=== PATIENT | male | born 1990 | race Two or more races ===

== ENCOUNTER 2021-10-24 11:40 | Outpatient (REF) | payer OTHER, SELFPAY ==
--- NOTE | ~2021-10-24 | XR_ITS ---
EXAMINATION: XR WRIST, LEFT CLINICAL INFORMATION: Sprain of the left wrist COMPARISON: None TECHNIQUE: PA, lateral, and oblique views of the left wrist. FINDINGS: There is an oblique transverse fracture of the scaphoid waist with slight apex dorsal angulation at fracture site. There is subtle sclerosis along the fracture margins as seen on the oblique view. The fracture line is widened to 2 mm. There is no sclerosis of the proximal pole fragment. Soft tissues are swollen. XR/XR wrist LT min 3V IMPRESSION: Mildly angulated, age indeterminate scaphoid waist fracture. Soft tissue swelling.
== END 2021-10-24 11:41 | disposition home or self-care (01) ==
LOC: HO.HMGCX 11:40
PROVIDERS: PCP Physician Assistant; Visit Provider Physician Assistant
DX: S63.502A Unspecified sprain of left wrist, initial encounter (principal)
CPT/HCPCS: 73110

== ENCOUNTER 2021-11-09 13:15 | Outpatient (REF) | payer OTHER, SELFPAY ==
--- NOTE | ~2021-11-09 | FL_ITS ---
EXAMINATION: XR INJECTION ARTHROGRAM WRIST, LEFT CLINICAL INFORMATION: TFC complex injury. Wrist pain. COMPARISON: None. TECHNIQUE: Following explaining fluoroscopy-guided left wrist arthrogram procedure for MRI including benefits and risks, a written consent was obtained. Patient was placed prone with left upper extremity outstretched and wrist palmar flexed as much as patient could tolerate. The dorsal aspect of wrist was cleaned and draped in the usual sterile manner. 1% lidocaine was injected at the radioscaphoid joint. A short 25-gauge needle was then inserted from the skin into the radioscaphoid joint and 1 mL of nonionic contrast was injected. A single image was obtained. Subsequently, 2 mL of diluted (0.1 mL of gadolinium in 10 mL of saline and 1% lidocaine) as a combination was injected and needle withdrawn. Complete hemostasis was achieved at puncture site. Simple Band-Aid applied. Patient was sent to MRI for further imaging. FINDINGS: The radioscaphoid and intercarpal joint spaces are maintained normal. There is contrast opacifying the radioscaphoid joint under fluoroscopy. Successful 2 ml of diluted gadolinium was injected under fluoroscopy. FLUOROSCOPY TIME: 0.7 minutes. DOSE AREA PRODUCT: 0.176 uGy-m2 (microgray-meter squared). FL/FL arthrogram wrist LT IMPRESSION: Unremarkable left wrist arthrogram. Patient was sent to MRI for further imaging.
--- NOTE | ~2021-11-09 | MR_ITS ---
EXAMINATION: MR WRIST WITHOUT CONTRAST, LEFT CLINICAL INFORMATION: Left wrist pain and swelling following a fall 1 month ago. COMPARISON: None. TECHNIQUE: Multisequence MR imaging of the left wrist was obtained following the intra-articular injection of contrast on a high-field strength scanner. FINDINGS: TRIANGULAR FIBROCARTILAGE: There is distal surface partial tearing along the posterior aspect of the radial triangular fibrocartilage complex measuring 0.2 cm in ML dimension (coronal image 8/23). No full-thickness tear. INTRINSIC LIGAMENTS: Complete tear of the scapholunate ligament with widening of the articulation measuring up to 0.4 cm in ML dimension. The lunotriquetral ligament is intact. TENDONS/MEDIAN NERVE: Trace fluid within the extensor digitorum tendon sheaths consistent with minimal tenosynovitis. No transverse tendon tear or tendon retraction. ARTICULAR CARTILAGE/BONE: Chronic, nondisplaced transverse fracture through the scaphoid waist with mild diffuse scaphoid marrow edema. No continuity of the marrow cavity to suggest significant osseous bridging across the fracture line. No fragmentation or erosion. Marrow edema focally within the dorsal aspect of the radius which could represent an osseous contusion. No associated fracture line. JOINT FLUID/SOFT TISSUES: [id number] radiocarpal joint effusion. MR/MR wrist LT w con IMPRESSION: 1. Subacute/chronic-appearing nondisplaced transverse fracture through the scaphoid waist with diffuse scaphoid marrow edema. No evidence of osseous bridging. No erosion or fragmentation to suggest advanced avascular necrosis. 2. Focal edema within the dorsal aspect of the distal radius which could represent an osseous contusion. No fracture line. 3. Complete, full-thickness tear of the scapholunate ligament with widening of the articulation measuring 0.4 cm in ML dimension. 4. Distal surface partial tearing involving the dorsal/radial aspect of the triangular fibrocartilage complex measuring 0.2 cm in ML dimension. No full-thickness tear. 5. Minimal extensor digitorum tenosynovitis without a transverse tendon tear or tendon retraction. 6. Mykrv-sd-dtzyrtml radiocarpal joint effusion.
== END 2021-11-09 13:16 | disposition home or self-care (01) ==
LOC: HO.XRAY 13:15
PROVIDERS: Visit Provider Physician Assistant
DX: S69.82XA Other specified injuries of left wrist, hand and finger(s), initial encounter (principal)
CPT/HCPCS: 25246; 73115; 73222; A9585

== ENCOUNTER 2021-11-11 12:40 | Outpatient (REF) | payer OTHER, SELFPAY ==
--- NOTE | ~2021-11-11 | XR_ITS ---
EXAMINATION: XR LEFT WRIST WITH SCAPHOID CLINICAL INFORMATION: Left wrist pain. COMPARISON: 11/09/2021 and 10/24/2021. TECHNIQUE: AP view of the left wrist and AP view of both left and right wrists. FINDINGS: There is a stable minimally displaced fracture through the waist of the left scaphoid. No dislocation on this view is identified. There appears to be some widening of the scaphoid lunate space. XR/XR wrist LT w scaphoid IMPRESSION: No significant change in appearance of left scaphoid waist fracture.
== END 2021-11-11 12:41 | disposition home or self-care (01) ==
LOC: HO.HOSX 12:40
PROVIDERS: Visit Provider Physician Assistant
DX: M25.532 Pain in left wrist (principal)
CPT/HCPCS: 73110

== ENCOUNTER 2021-11-19 09:22 | Outpatient (REF) | payer OTHER, SELFPAY ==
--- NOTE | ~2021-11-19 | CT_ITS ---
EXAMINATION: CT WRIST THE LEFT WITHOUT CONTRAST CLINICAL INFORMATION: Scaphoid bone fracture, follow-up. COMPARISON: Left wrist radiographs dated 11/11/2021 and 10/24/2021 as well as left wrist MRI performed on 11/09/2021. TECHNIQUE: Multiple axial images of the left wrist are obtained without the administration of intravenous contrast. Coronal and sagittal reformatted images were obtained. FINDINGS: Again seen is a mid body transverse comminuted fracture of the scaphoid bone with minimal displacement. A small osseous fragment is seen along the ventral aspect of the fracture. Mild widening of the scapholunate joint space, more pronounced ventrally is noted. The proximal carpal row is normally aligned. The distal radius and ulna are intact. The visualized metacarpals are intact. Mild soft tissue swelling is seen bilaterally. CT/CT wrist LT wo con IMPRESSION: 1. Minimally displaced comminuted mid body scaphoid fracture correlating with previous studies. 2. Mild widening of the scapholunate joint space, more pronounced ventrally correlates with previously described scapholunate ligament tear.
== END 2021-11-19 09:23 | disposition home or self-care (01) ==
LOC: HO.CT 09:22
PROVIDERS: PCP Physician Assistant; Visit Provider Physician Assistant
DX: S62.009A Unspecified fracture of navicular [scaphoid] bone of unspecified wrist, initial encounter for closed fracture (principal); X58.XXXA Exposure to other specified factors, initial encounter; Y93.9 Activity, unspecified; Y92.9 Unspecified place or not applicable; Y99.8 Other external cause status
CPT/HCPCS: 73200

== ENCOUNTER 2021-12-02 08:51 | Outpatient (REF) | payer OTHER, SELFPAY ==
--- NOTE | ~2021-12-02 | XR_ITS ---
EXAMINATIONS: XR wrist LT w scaphoid CLINICAL INFORMATION: Reason for Exam M25.532 - Pain in left wrist COMPARISON: Prior study November 11, 2021, prior CT scan from November 19, 2021. VIEWS: Frontal lateral and oblique scaphoid view left wrist FINDINGS: Redemonstration of mildly displaced fracture of the waist of the left scaphoid, this has not significantly changed from prior study of November 11, 2021. As previously described there is a mild widening of the scapholunate space concerning for possible underlying ligamental injury. No new fracture. XR/XR wrist LT w scaphoid IMPRESSION: There has been no significant change. *Mildly displaced scaphoid waist fracture, given the location of the fracture, scaphoid is at risk for developing AVN. *Mild widening of the scapholunate space concerning for possible underlying ligamental injury.
== END 2021-12-02 08:52 | disposition home or self-care (01) ==
LOC: HO.HOSX 08:51
PROVIDERS: Visit Provider Orthopaedic Surgery
DX: M25.532 Pain in left wrist (principal)
CPT/HCPCS: 73110

== ENCOUNTER 2021-12-07 05:57 | Day surgery (SDC) | payer OTHER, SELFPAY ==
--- NOTE | 2021-12-04 12:19 | P.CONAN_ITS ---
Documented by User: Trish Diamond NP 12/04/21 12:20 HPI - Anesthesia Eval Consult details Narrative: 31yo M for Left Scaphoid ORIF with auto logus bone graft,poss SLIL ligament repair, [facility], [facility] Active Problems Active Problems: All Active Problems (Updated 12/02/21 @ 15:53 by Sherry Mariano MD) Left scapholunate ligament tear (Acute) Delayed union of fracture of scaphoid of left wrist (Acute) TFCC (triangular fibrocartilage complex) injury (Acute) Scaphoid fracture (Acute) Left wrist sprain (Acute) Social History Social History Use of substances other than those prescribed or required for medical reasons: Yes Substance Use Frequency: Daily Are you DNR?: No Advance Directives: No Advance Directives Information Provided: Yes Current occupational status: 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 Allergies Allergy/AdvReac Type Severity Reaction Status Date / Time No Known Allergies Allergy Verified 12/02/21 09:37 Exam Exam Date and Time: December 04, 2021 121 Assessment and Plan Assessment Anesthesia Assessment: Chart Reviewed Documented by User: Atul Murry MD 12/07/21 15:51 [facility], [facility] Family History Family history of problems with anesthesia: No Surgical History History of Problems with Anesthesia: No Social History Social History Use of substances other than those prescribed or required for medical reasons: Yes Substance Use Frequency: Daily Are you DNR?: No Advance Directives: No Advance Directives Information Provided: Yes Current occupational status: 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 Allergies Allergy/AdvReac Type Severity Reaction Status Date / Time No Known Allergies Allergy Verified 12/02/21 09:37 Exam Airway Mallampati Class: III TM Dist: >3cm Neck ROM: Full Loose/Missing/Broken Teeth: Yes (Lower teeth chipped , poor dentition ) Heart: S1,S2 Lungs: b/l breath sounds Assessment and Plan Assessment Anesthesia Assessment: Anesthesia Plan Discussed Final Anesthetic Review Family History of Problems with Anesthesia: No History of Problems with Anesthesia: No NPO: Yes ASA Class: II Final Preanesthetic Review: Meds/Allgs Chart Reviewed, Consent Obtained/Reviewed and Anes Risks/Benef Reviewed Patient Risk: Intermediate Procedure Risk: Intermediate Anesthetic Plan Anesthetic Plan: GA and Regional Block Disposition: Standard PACU
[2021-12-07] VITALS (8 sets, daily range): BP systolic 119–144; BP diastolic 80–97; PULSE 71–94; RESP 14–22; TEMP 36.4–36.7; O2SAT 96–98; BMI 23.7
--- NOTE | ~2021-12-07 | FL_ITS ---
EXAMINATION: XR FLUOROSCOPY WITH IMAGES CLINICAL INFORMATION: Scaphoid fracture COMPARISON: December 02, 2021 TECHNIQUE: Fluoroscopy performed by Dr. Mariano. Fluoroscopy time: 89.90 seconds DAP: 0.1935 Gycm2 Images: 11 FINDINGS: C-arm views show placement of screw within the scaphoid. FL/FL guidance in OR IMPRESSION: C-arm imaging for intraoperative orthopedic procedure.
[2021-12-07] MEDS: Lactated Ringers 1,000 ML 100 ML IVCONT (06:29)
--- NOTE | 2021-12-07 07:43 | MHC.SHP ---
Pre-Procedural Eval Section A Date of Service: 12/07/21 The patient is an INPATIENT: No Changes since office visit: No Cold of Flu in the past 2 weeks, No New Medical Problems, No Changes in Medication and No Patient answered all questions The History & Physical has been completed within 30 days and I have reviewed it.: Yes Section B Chief Complaint: Sprain of other part of left wrist and hand,fx Allergies: Allergies Allergy/AdvReac Type Severity Reaction Status Date / Time No Known Allergies Allergy Verified 12/02/21 09:37 Plan I have reviewed the history and physical and performed a pertinent physical examination on my patient. No changes have occurred unless specified.
--- NOTE | 2021-12-07 07:44 | P.OP_ITS ---
Operative Note Operative Note Date of Service: 12/07/21 Narrative: Operative Note Narrative: Preop diagnosis: 1. Left scaphoid fracture delayed union, proximal 1/3 2. Possible left scapholunate intercarpal ligament injury Postop diagnosis: 1. Left scaphoid fracture delayed union, proximal 1/3 2. Partial left scapholunate intercarpal ligament injury with the dorsal structural aspect of the ligament being intact. Procedure: 1. Left scaphoid fracture open reduction internal fixation Surgeon: Sherry Mariano MD Anesthesia: General Anesthesia plus regional block Findings: Proximal 1/3 scaphoid fracture. The dorsal fibers of the scapholunate intercarpal ligament were intact and functional. No SLIL proximal or volar fibers were visualized. Implants: 22 mm AcuTrak 2 mini headless compression screw Tourniquet time: 65 minutes EBL: 5.0 ml Specimen: None Drains: None Complications: None Disposition: Brought to the recovery room in stable condition Plan: Follow-up in 10-14 days for wound check, suture removal and placement in a short-arm thumb spica cast Anticipate casting for 10-12 weeks or more or until there was good evidence of interval bony healing. Follow-up radiographs and cast changes should occur at roughly 4 week intervals. 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 Indications: The patient is a 31 year old man with with a complex left wrist injury including delayed union of a left proximal 1/3 scaphoid fracture, and concern for a possible scapholunate intercarpal ligament injury. . The risks and benefits of operative treatment, including but not limited to risk of damage to blood vessels, nerves, tendons, infection, recurrence, persistent pain or numbness, incomplete resolution of preoperative symptoms, or need for further surgery were discussed with the patient and they wished to proceed with surgery. Procedure: Once consent was obtained patient was brought back to the operating suite and placed in the operating table in a supine position. A regional block was performed by the anesthesia team. Perioperative antibiotics and anesthesia was administered by the anesthesia team. A tourniquet was applied to the proximal aspect of the left upper extremity and the limb was prepped and draped in a standard surgical fashion. The limb was elevated exsanguinated with Esmarch bandage and the tourniquet inflated to 250 mm of mercury for a total tourniquet time of 65 minutes. A 6 cm dorsal longitudinal incision was made centered over the dorsal aspect of the patient's left wrist. Incision was in line with the 3rd metacarpal and passed just ulnar to Julio's tubercle, and was made through the skin the subcutaneous tissues using a 15. Blade. Careful dissection was made down to the level of the extensor retinaculum and the dorsal wrist capsule. The distal aspect of the extensor retinaculum was released longitudinally using a 15. Blade. We then passed through the interval between the 3rd and 4th dorsal compartments to the dorsal wrist capsule. A longitudinal incision was then carefully made through the dorsal aspect of the wrist capsuloligamentous layer, revealing to us the wrist joint. The scapholunate joint was evaluated. Of interest, the dorsal fibers of the scapholunate intercarpal ligament were intact and functional. However, the proximal and volar fibers were missing. The interval dorsally appeared to measure only about 2-3 mm. This did appear to increase to perhaps 4 or more mm in the volar aspect of the interval seen with the wrist in flexion. Our attention was turned to the scaphoid fracture. The FluoroScan was used throughout the case to assess our reduction and placement of all implants. The K-wire for the AcuTrak 2 mini headless compression screw was passed through the proximal pole of the scaphoid distally across the fracture site to the distal pole of the scaphoid. We were able to position this K-wire very close to center center an both PA and lateral views. Once satisfied with this the length was measured to 27 mm from which I took off 2 mm for both the near cortex and then 2 mm for the far cortex and we selected a 22 mm AcuTrak 2 mini headless compression screw. The long slender cannulated Reamer was then used to ream across our scaphoid fracture. The short fat Reamer was then used to open up the near cortex. I then placed the 22 mm AcuTrak 2 mini headless compression screw and advanced it from proximal to distal across our fracture site. We appear to obtain good compression at our fracture site, were very satisfied with the position of our screw, and were assured both visually and radiographically that the head of the screw was deep to both the cartilage and the subchondral bone. The guidewire was then removed and final radiographs were obtained. I again evaluated the scapholunate interval. The dorsal fibers of the SLIL were indeed intact. The dorsal interval only measured about 2-3 mm in width even with axial loading, though we did see that the gap volarly was slightly more at 4-5 mm. Of note, preoperatively I had measured the scapholunate interval of the uninjured right wrist on pencil novelty twister operator view and found it to be 4 mm. As the dorsal fibers of the scapholunate intercarpal ligament were intact, they were not in need of repair. At this point the tourniquet was deflated and hemostasis obtained with a brief period of local pressure and bipolar electrocautery. The wound was copiously irrigated with normal saline. The capsuloligamentous layer was reapproximated with some 4-0 FiberWire suture. The distal aspect of the extensor retinaculum was also closed with some 4-0 FiberWire and 4-0 Vicryl suture. The EPL tendon was noted to be intact and gliding well. The subcutaneous layer was closed with 4-0 Vicryl suture, and the skin edges were reapproximated with 5-0 nylon suture. The wound was infiltrated with some ropivacaine for postop pain control and a sterile dressing and short-arm thumb spica splint was applied. The patient appears to have tolerated the procedure well and with no complications. All digits were well vascularized conclusion of the case.
[2021-12-07] MEDS: Acetaminophen 325 MG TABLET 650 MG PO (11:15)
== END 2021-12-07 12:27 | disposition home or self-care (01) ==
PROVIDERS: Visit Provider Orthopaedic Surgery
PROC: (CPT 25628; principal; 2021-12-07 07:30)
DX: S62.032K Displaced fracture of proximal third of navicular [scaphoid] bone of left wrist, subsequent encounter for fracture with nonunion (principal); S63.512A Sprain of carpal joint of left wrist, initial encounter; V18.4XXD Pedal cycle driver injured in noncollision transport accident in traffic accident, subsequent encounter; Y93.67 Activity, basketball; Y92.9 Unspecified place or not applicable; Y99.8 Other external cause status
CPT/HCPCS: 25628; C1713; J0690; J1100; J2250; J2405; J2795; J3010

== ENCOUNTER 2021-12-22 10:08 | Outpatient (REF) | payer OTHER, SELFPAY ==
--- NOTE | ~2021-12-22 | XR_ITS ---
EXAMINATION: XR WRIST, LEFT CLINICAL INFORMATION: Pain. COMPARISON: Radiographs dated 12/03/2021. TECHNIQUE: PA, lateral, and oblique views of the left wrist, together with a dedicated navicular view. FINDINGS: Bony alignment and mineralization are normal. There is a healed scaphoid fracture, with intact orthopedic screw. No hardware failure or loosening is seen. No acute fracture or dislocation is seen. There is no unusual degenerative change. The soft tissue planes are unremarkable. XR/XR wrist LT w scaphoid IMPRESSION: A healed scaphoid fracture is seen, in good alignment.
== END 2021-12-22 10:09 | disposition home or self-care (01) ==
LOC: HO.HOSX 10:08
PROVIDERS: Visit Provider Orthopaedic Surgery
DX: M25.532 Pain in left wrist (principal)
CPT/HCPCS: 73110

== ENCOUNTER 2022-01-26 09:07 | Outpatient (REF) | payer OTHER, SELFPAY ==
--- NOTE | ~2022-01-26 | XR_ITS ---
EXAMINATION: LEFT WRIST X-RAY CLINICAL INFORMATION: Fracture COMPARISON: Previous x-ray most recent 12/22/2021 TECHNIQUE: 4 views of the left wrist FINDINGS: There is a orthopedic screw seen in the scaphoid bone. Scaphoid fracture appears unchanged. There is osteopenia. There is slight widening of the left scapholunate distance that appears stable. Carpal bones are otherwise normal. Soft tissues are normal. XR/XR wrist LT w scaphoid IMPRESSION: No change in scaphoid fracture.
== END 2022-01-26 09:08 | disposition home or self-care (01) ==
LOC: HO.HOSX 09:07
PROVIDERS: Visit Provider Orthopaedic Surgery
DX: M25.532 Pain in left wrist (principal)
CPT/HCPCS: 73110

== ENCOUNTER 2022-02-03 08:28 | Outpatient (REF) | payer OTHER, SELFPAY | END 2022-02-03 08:29 | disposition home or self-care (01) | LOC: HO.HOSX 08:28 | PROVIDERS: Visit Provider Orthopaedic Surgery | DX: Z13.89 Encounter for screening for other disorder (principal) ==

== ENCOUNTER 2022-02-10 | Outpatient (REF) | payer OTHER, SELFPAY ==
--- NOTE | ~2022-02-10 | XR_ITS ---
EXAMINATION: LEFT WRIST X-RAY CLINICAL INFORMATION: Fracture COMPARISON: Previous x-ray most recent 01/26/2022 TECHNIQUE: 4 views of the left wrist FINDINGS: There is an orthopedic screw seen in the scaphoid bone. This appears unchanged. Scaphoid fracture appears unchanged. There is osteopenia. There is widening of the scapholunate distance. Soft tissues are unremarkable. XR/XR wrist LT w scaphoid IMPRESSION: No change in scaphoid fracture.
== END 2022-02-10 00:01 | disposition home or self-care (01) ==
LOC: HO.HOSX
PROVIDERS: Visit Provider Orthopaedic Surgery
DX: M25.532 Pain in left wrist (principal)
CPT/HCPCS: 73110

== ENCOUNTER 2022-03-09 17:01 | Outpatient (REF) | payer OTHER, SELFPAY ==
--- NOTE | ~2022-03-09 | XR_ITS ---
EXAMINATION: XR wrist LT w scaphoid CLINICAL INFORMATION: Pain in left wrist COMPARISON: 02/10/2022 TECHNIQUE: PA, lateral, oblique, and scaphoid views of the left wrist. FINDINGS: A compression screw is seen in the scaphoid. The scaphoid fracture is visible but less conspicuous. No fracture seen elsewhere. XR/XR wrist LT w scaphoid IMPRESSION: Compression screw against banding fracture of the proximal scaphoid waist. The fracture remains visible but is less conspicuous.
== END 2022-03-09 17:02 | disposition home or self-care (01) ==
LOC: HO.HOSX 17:01
PROVIDERS: Visit Provider Orthopaedic Surgery
DX: M25.532 Pain in left wrist (principal)
CPT/HCPCS: 73110

== ENCOUNTER 2022-04-07 | Outpatient (REF) | payer OTHER, SELFPAY ==
--- NOTE | ~2022-04-07 | XR_ITS ---
EXAMINATION: LEFT WRIST X-RAY CLINICAL INFORMATION: Pain COMPARISON: Previous x-rays most recent February 2019 TECHNIQUE: 4 views of the left wrist FINDINGS: There is a screw transfixing the scaphoid fracture. Orthopedic hardware appears unchanged. Alignment is unchanged. Fracture line is still seen. Carpal bones are otherwise normal. Soft tissues are normal. XR/XR wrist LT w scaphoid IMPRESSION: ORIF of scaphoid fracture similar to previous exam.
== END 2022-04-07 00:01 | disposition home or self-care (01) ==
LOC: HO.HOSX
PROVIDERS: Visit Provider Orthopaedic Surgery
DX: M25.532 Pain in left wrist (principal)
CPT/HCPCS: 73110

== ENCOUNTER 2022-05-06 14:59 | Outpatient (REF) | payer OTHER, SELFPAY | END 2022-05-06 15:00 | disposition home or self-care (01) | LOC: HO.HOSX 14:59 | PROVIDERS: Visit Provider Orthopaedic Surgery | DX: Z13.89 Encounter for screening for other disorder (principal) ==

== ENCOUNTER 2022-06-02 14:59 | Outpatient (REF) | payer OTHER, SELFPAY ==
--- NOTE | ~2022-06-02 | XR_ITS ---
EXAMINATION: LEFT WRIST AND SCAPHOID CLINICAL INFORMATION: Pain left wrist COMPARISON: None TECHNIQUE: 4 views. FINDINGS: 4 views left wrist reveal no visible rib fracture or bony abnormality. There is a solitary screw through the scaphoid bone for old healed fracture XR/XR wrist LT w scaphoid IMPRESSION: No acute fracture or dislocation left wrist. There is a solitary screw through the scaphoid bone for old healed fracture. .
== END 2022-06-02 15:00 | disposition home or self-care (01) ==
LOC: HO.HOSX 14:59
PROVIDERS: Visit Provider Orthopaedic Surgery
DX: S62.002G Unspecified fracture of navicular [scaphoid] bone of left wrist, subsequent encounter for fracture with delayed healing (principal); S63.8X2D Sprain of other part of left wrist and hand, subsequent encounter
CPT/HCPCS: 73110

== ENCOUNTER 2022-06-09 14:10 | Outpatient (REF) | payer OTHER, SELFPAY ==
--- NOTE | ~2022-06-09 | CT_ITS ---
EXAMINATION: CT WRIST WITHOUT CONTRAST, LEFT CLINICAL INFORMATION: Scaphoid fracture. COMPARISON: Multiple priors, most recent left wrist CT dated 11/19/2021 and radiographs dated 06/02/2022. TECHNIQUE: Contiguous axial CT images of the left wrist were obtained without contrast. Multiplanar reformats were provided and reviewed. This CT examination was performed using dose optimization techniques as appropriate, variously including the following: *Automated exposure control *Adjustment of mA and/or kV according to patient size (this includes techniques or standardized protocols for targeted exams where dose is matched to indication/reason for exam; i.e. extremities or head) *Use of iterative reconstruction technique. DOSE: 121 mGy-cm FINDINGS: Redemonstration of a chronic scaphoid waist fracture in anatomic alignment. There is a cannulated orthopedic screw across the fracture without evidence of hardware complication. No hardware fracture or perihardware lucency to suggest loosening or infection. There is prominent osseous bridging across the fracture line with minimal persistence along the ulnar aspect. Osseous bridging involves greater than 90% of the fracture surface. No scaphoid sclerosis, cystic change, or cortical collapse to suggest avascular necrosis. Widening of the scapholunate interval which is unchanged when compared to the prior examination and consistent with a scapholunate ligament injury. No joint space narrowing or marginal osteophytes. No concerning lytic or blastic osseous lesion. No acute fracture. No abnormal soft tissue mass or fluid collection. No significant joint effusion. The visualized flexor and extensor tendons are grossly intact, however, evaluation is limited on CT examination. CT/CT wrist LT wo IV con IMPRESSION: 1. Chronic scaphoid waist fracture in anatomic alignment with an orthopedic screw in place. No evidence of hardware complication. Prominent osseous bridging across the fracture line involving greater than 90% of the fracture surface. No evidence of avascular necrosis. 2. Widening of the scapholunate interval, unchanged when compared to the prior examination and consistent with a scapholunate ligament injury.
== END 2022-06-09 14:11 | disposition home or self-care (01) ==
LOC: HO.CT 14:10
PROVIDERS: PCP Physician Assistant; Visit Provider Orthopaedic Surgery
DX: S62.002G Unspecified fracture of navicular [scaphoid] bone of left wrist, subsequent encounter for fracture with delayed healing (principal)
CPT/HCPCS: 73200

== ENCOUNTER → 2022-06-29 11:50 | Outpatient (BNVA) | payer OTHER, SELFPAY | PROVIDERS: PCP Physician Assistant; Visit Provider Orthopaedic Surgery | DX: Z13.89 Encounter for screening for other disorder (principal) ==

== ENCOUNTER 2022-07-30 11:55 | Outpatient (RCR) | payer SELFPAY ==
--- NOTE | 2022-07-30 13:38 | MHC.OT.EP ---
[address] [phone] Occupational Therapy Plan of Care Patient Name: Ambrosio Yang Date of Evaluation: 07/30/22 Diagnosis: Left Scaphoid fx s/p ORIF Pain Location: Pain free at rest Increases w/ movements Pain Score: 0-5 Pain Scale Used: Numeric (0 - 10) Aggravating Factors: Movements, reaching back (scratching back) Alleviating Factors: None needed, has ice pack Assessment: 31 yo male fell while playing basketball, landed on his outstretched left hand and went to urgent care about one month later due to persistent pain. Original x-ray showed left scaphoid fx and follow up CT again shows scaphoid fx, but also potential SL tear, TFCC partial tear and EDC tenosynovitis. He is now post-op repair 12/07 w/ Dr Mariano, ORIF to scaphoid but no other repair needed as SLIL was found intact. He has had several follow up ortho visits and last visit 06/29/22 CT shows 90% healing and OT ordered to progress range, strength and functional use. On assessment, he seems to be doing fairly well. Wrist extension and flexion limited by about 20 degrees each direction, and strength tested w/ submaximal effort, but already with functional grasp. He is pain free at rest and has moderate pain only w/ certain movements of the wrist. He continues to work light duty w/ 5lb weight restriction and is avoiding heavy lifting and recreational sports. I anticipate he will do well w/ course of therapy and home exercises. Frequency and Duration: The patient will be seen 1-2 x/wk for 4-6 weeks Short Term Goals: Ind w/ HEP Pt to report ease w/ sleeping through the night Ind w/ use of heat and cold appropriately as needed Wrist flex 50 degrees Wrist ext 55 degrees Mcc Goals: Gross grasp >50lb Pt to report ease w/ moderate home care tasks (bimanual laundry basket lift, cooking, etc) Pain free w/ most daily activities Wrist flex 60 degrees Wrist ext 60 degrees QuickDASH score <25 pts Treatment Plan: Therapeutic Exercise Therapeutic Activity Home Exercise Program Patient Education Edema Control ADL Training Fluidotherapy MHP Cold Packs Soft Tissue Mobilization Kinesiotaping Electronically Signed By: Merry Claire OTR/L CHT Please Sign and return to therapist. Thank you once again for your referral.
--- NOTE | 2022-08-18 13:59 | MHC.OT.DC ---
[address] [phone] F: [phone] Occupational Therapy Discharge Note Patient Name: Ambrosio Yang Provider: Sherry Mariano Diagnosis: Left Scaphoid fx s/p ORIF Date of Surgery: 12/07/21 Date of Evaluation: 07/30/22 Date of Discharge: 08/18/22 Treatments to Date: 1 Cancellations to Date: No Shows to Date: 3 Discharge Status: Visit Non-compliance Discharge Summary: Ambrosio was seen for initial OT assessment and therapy was recommended for 2x/wk, however he has no showed the past three visits and phone call with message left for appointment reminders. We will discharge from therapy services at this time. From initial OT eval 07/30/22: 31 yo male fell while playing basketball, landed on his outstretched left hand and went to urgent care about one month later due to persistent pain. Original x-ray showed left scaphoid fx and follow up CT again shows scaphoid fx, but also potential SL tear, TFCC partial tear and EDC tenosynovitis. He is now post-op repiar 12/07 w/ Dr Mariano, ORIF to scaphoid but no other repair needed as SLIL was found intact. He has had several follow up ortho visits and last visit 06/29/22 CT shows 90% healing and OT ordered to progress range, strength and functional use. On assessment, he seems to be doing fairly well. Wrist extension and flexion limited by about 20 degrees each direction, and strength tested w/ submaximal effort, but already with functional grasp. He is pain free at rest and has moderate pain only w/ certain movements of the wrist. He continues to work light duty w/ 5lb weight restriction and is avoiding heavy lifting and recreational sports. I anticipate he will do well w/ course of therapy and home exercises. Electronically Signed By: Merry Claire, OTR/L CHT Please Sign and return to therapist, thank you for your referral.
== END 2022-08-18 14:06 | disposition home or self-care (01) ==
LOC: HO.OT 11:55
PROVIDERS: PCP Physician Assistant; Visit Provider Orthopaedic Surgery
DX: S62.002G Unspecified fracture of navicular [scaphoid] bone of left wrist, subsequent encounter for fracture with delayed healing (principal)
CPT/HCPCS: 97110; 97165

== ENCOUNTER 2024-08-22 10:30 | Outpatient (AMB) | payer OTHER, SELFPAY ==
[2024-08-22 10:38] VITALS: BP 124/86; PULSE 67; TEMP 36.5; O2SAT 97; BMI 29.9
--- NOTE | 2024-08-22 10:38 | A.OFFPC_ITS ---
Vital Signs 08/22/24 10:38 Height 6 ft 4 in Weight 246 lb BMI 29.9 BP 124/86 Blood Pressure Location Lt brachial Position Sitting Pulse 67 Pulse Source Pulse Oximeter Temp 97.7 F Temp Source Temporal Artery Scan Pulse Oximetry (%) 97 Oxygen Delivery Method Room Air Intake Visit Reasons: annual exam Seconds Handler Required: No Accompanied by: Self / Same As Patient Allergies No Known Allergies Allergy (Verified 08/22/24 11:13) Medication List - Last Reconciled 08/22/24 by Inder Flores PA-C No Known Home Meds Tobacco use date assessed: 08/22/24 Dental Screening Dental Screen Date: 08/22/24 Did you have a dental visit in the last 12 months?: Yes Did you have a dental problem in the last 6 months where you did not have access to dental care?: No Was dental information given to patient?: Patient has dentist HPI annual exam HPI Details Patient is a 33 year male here today for an annual physical. Patient has no significant past medical history . 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 He was found to elevated serum creatinine at 2.3. He does admit to taking creatinine supplements to help him with muscle mass. He has stopped his creatinine supplement over the last week in his willing to do repeat labs. He also was found to have elevated total cholesterol in his slightly elevated ALT. Vaccines: Needs up-to-date tetanus though declines at this time [facility] Social History (Updated 08/22/24 @ 11:19 by Inder Flores PA-C) Housing: Apartment Alcohol intake: current Alcohol intake frequency: holidays/special occasions only e-Cigarette/Vaping Use: Never Used Substance Use Type: Marijuana service: No Current occupational status: employed Current occupation: [employer] Cognitive needs: No Hearing needs: No Vision needs: No Questionnaire PHQ-9 Over the last 2 weeks, how often have you been bothered by any of the following problems? 1. Little interest or pleasure in doing things: not at all 2. Feeling down, depressed, or hopeless: not at all 3. Trouble falling or staying asleep, or sleeping too much: not at all 4. Feeling tired or having little energy: not at all 5. Poor appetite or overeating: not at all 6. Feeling bad about yourself - or that you are a failure or have let yourself or your family down: not at all 7. Trouble concentrating on things, such as reading the newspaper or watching television: not at all 8. Moving or speaking so slowly that other people could have noticed. Or the opposite - being so fidgety or restless that you have been moving around a lot more than usual: not at all 9. Thoughts that you would be better off or of hurting yourself in some way: not at all Total score: 0 Depression Screening Interpretation: Negative Depression Screening Done: Yes 53467 - PHQ-9 Billing: Yes Source: Developed by Drs. Conrad French, Luciana Thomas, Nato Jacobson and colleagues, with an educational julián from [employer]. Thrive Questionnaire Date Thrive assessed: 08/22/24 I am a: Patient What is your living situation today?: I have a steady place to live Within the past 12 months, did the food you bought not last and you didn't have the money to get more?: Sometimes True Within the past 12 months, did you worry whether your food would run out before you got money to buy more?: Sometimes True Do you have trouble paying for medicines?: No Do you have trouble getting transportation to medical appointments?: No Do you have trouble paying your heating and electricity bill?: No Do you have trouble taking care of your child, family member or friend?: No Do you have trouble with day-to-day activities such as bathing, preparing meals, shopping, managing finances, etc.?: No Are you currently unemployed and looking for a job?: No Are you interested in more education?: I choose not to answer this question Please select the resources that you would like help with: None Currently or been in a relationship where the following occur: I choose not to answer THRIVE Score: 2 AUDIT C Alcohol Use Questionnaire (AUDIT-C) 1. How often do you have a drink containing alcohol?: Never 3. How often do you have six or more drinks on one occasion?: Never Total Score: 0 JAYASHREE-7 AMB Questionnaire AJYASHREE-7 Date JAYASHREE - 7 assessed: 08/22/24 Feeling nervous, anxious, or on edge: 0 = Not at all Not being able to stop or control worryin = Not at all Worrying too much about different things: 0 = Not at all Trouble relaxin = Not at all Being so restless that it is hard to sit still: 0 = Not at all Becoming easily annoyed or irritable: 0 = Not at all Feeling afraid as if something awful might happen: 0 = Not at all Total JAYASHREE-7 score (0-4 normal; 5-9 mild; 10-14 moderate; 15-21 severe): 0 Source: Developed by Drs. Conrad French, Luciana Thomas, Nato Jacobson and colleagues, with an educational julián from [employer]. JAYASHREE-7 Assessment Billing JAYASHREE-7 Assessment Tool: JAYASHREE-7 Assessment 46004 Review of Systems Const Denies excessive sweating, Denies fatigue and Denies headache(s) Eyes Denies loss of vision ENT Denies vertigo, Denies dizziness, Denies headache(s) and Denies sore throat Card Denies chest pain, Denies leg edema and Denies lightheadedness Resp Denies cough, Denies hemoptysis and Denies wheezing GI Denies abdominal pain, Denies melena, Denies constipation, Denies diarrhea and Denies vomiting Denies dysuria, Denies urinary frequency and Denies urinary urgency Musc Denies arthralgias, Denies joint swelling, Denies numbness and Denies tingling Skin/Breast Denies rash and Denies skin ulcer Neuro Denies Abnormal speech present, Denies behavioral changes, Denies vertigo, Denies dizziness, Denies headache(s), Denies loss of vision, Denies memory loss, Denies numbness and Denies tingling Psych Denies anxiety, Denies behavioral changes, Denies depression, Denies memory loss and Denies panic attacks Endo Denies excessive sweating, Denies fatigue, Denies flushing, Denies polydipsia and Denies polyuria Tony/Lymph Denies easy bleeding and Denies easy bruising Aller/Immun Denies wheezing Physical exam (Primary Care) Vital Signs: Last Vital Signs Temp 97.7 F 08/22/24 10:38 Pulse 67 08/22/24 10:38 BP 124/86 08/22/24 10:38 Pulse Ox 97 08/22/24 10:38 Oxygen Delivery Method Room Air 08/22/24 10:38 BMI result Body Mass Index 29.9 Tobacco/Smoking Status: Tobacco use Status Tobacco use date assessed 08/22/24 08/22/24 10:41 e-Cigarette/Vaping Use Never Used 08/22/24 11:19 PHQ-9: PHQ-9 Score PHQ-9: Total score 0 08/22/24 11:15 Depression Screening Interpretation: Negative Thrive Assessment: Date of Thrive Assessment Date Thrive assessed 08/22/24 08/22/24 10:41 Currently or been in a relationship where the following occur: I choose not to answer Const General: healthy appearing, no acute distress, alert and awake Nutritional Appearance: well nourished Orientation/consciousness: oriented to person, oriented to place and oriented to time HENMT Head: Yes normocephalic Ears: TM's normal bilaterally General nose exam: Normal nasal mucous membranes and turbinates present Face and sinus: No sinus tenderness Mouth: Normal oral and palatal mucosa present and tongue normal Teeth and gingiva: dentition normal and gingiva normal Throat: Yes posterior oropharynx normal, Yes tonsils normal and Yes uvula midline Eyes Conjunctivae: conjunctivae normal Sclerae: sclerae normal Pupils: Equal, round and reactive pupils present EOM: EOMs intact bilaterally Direct Ophthalmoscopy: No no photophobia Neck Neck: Yes no lymphadenopathy and Yes no JVD Thyroid: Thyroid normal Carotids: no bruits Chest Chest palpation & inspection: no tenderness Resp Effort & Inspection: normal respiratory effort and not tachypneic Auscultation: no crackles, no rales, no rhonchi and no wheezes Cardio Jugular venous distension: no JVD Rate: regular rate Rhythm: regular rhythm Heart sounds: no murmurs and normal S1 and S2 Bruits: no carotid bruits Peripheral pulses: Peripheral pulses 2+ throughout GI Inspection: Yes normal to inspection, No abdominal wall ecchymosis and No visible herniation Palpation (GI): Soft to palpation, nontender, no hepatomegaly and no splenomegaly Auscultation: normal bowel sounds General: Yes no CVA tenderness Back/Spine/Pelvis Back: no CVA tenderness and No back tenderness Cervical Spine: cervical ROM normal Thoracic/Lumbar Spine: thoracic and lumbar spine normal to inspection, straight leg raise negative bilaterally, No thoraco-lumbar ROM limited and No lumbar spinal tenderness Skin General skin exam: no rashes or lesions noted and dry skin Lesions: no lesions Rashes: no rashes Wounds: no wounds Neuro General: oriented to person, oriented to place and oriented to time Cranial nerves: Yes Equal, round and reactive pupils present Cognition (Neuro): normal cognition Speech: No Abnormal speech present Gait exam (Neuro): Normal gait present Motor exam (neuro): no tremor noted Extrem Right upper extremity: full ROM Left upper extremity: full ROM Right lower extremity: full ROM; no edema Left lower extremity: full ROM; no edema Psych Appearance: grossly normal Mental Status: mental status grossly normal Speech and movement: Normal speech and movement present Affect: normal affect Attitude: cooperative Thought process: Normal thought process present Coding Level of Care Code Est Pt Prev Care 18-39y([id number]) Diagnoses Annual physical exam Z00.00 Elevated serum creatinine R79.89 Mixed hyperlipidemia E78.2 Hyperlipidemia type: mixed hyperlipidemia Additional Codes JAYASHREE-7 Assessment Billing - JAYASHREE-7 Assessment Tool: JAYASHREE-7 Assessment 62422 ([id number]) PHQ-9 - 63709 - PHQ-9 Billing: Yes ([id number]) Assessment & Plan Assessment & Plan (1) Annual physical exam: Code(s): Z00.00 - Encounter for general adult medical examination without abnormal findings Category: Medical Plan: As per HPI (2) Elevated serum creatinine: Code(s): R79.89 - Other specified abnormal findings of blood chemistry Category: Medical Plan: Patient was noted to have an elevated serum creatinine in the setting of taking supplemental creatinine. Has been off of supplemental creatinine over the last week. Will recheck renal functions. Will need follow up communication with the provider doing his physical for [employer] (3) HLD (hyperlipidemia): Code(s): E78.5 - Hyperlipidemia, unspecified Category: Medical Qualifiers: Hyperlipidemia type: mixed hyperlipidemia Qualified Code(s): E78.2 - Mixed hyperlipidemia Plan: Of note patient did have elevated cholesterol on labs and will repeat cholesterol labs evaluate. Will try to make some lifestyle and dietary modifications to reduce his cholesterol. Orders: Orders Comprehensive [place]. Panel Fast Today - Other specified abnormal findings of blood chemistry Lipid Panel Today E78.2 - Mixed hyperlipidemia Complete Blood Count no Diff Today - Other specified abnormal findings of blood chemistry
== END 2024-08-22 11:27 | disposition home or self-care (01) ==
LOC: HO.HMCH 10:30
PROVIDERS: PCP Physician Assistant; Visit Provider Physician Assistant
DX: Z00.00 Encounter for general adult medical examination without abnormal findings (principal); R79.89 Other specified abnormal findings of blood chemistry; E78.2 Mixed hyperlipidemia

== ENCOUNTER 2024-08-22 10:30 | Outpatient (REF) | payer OTHER, SELFPAY ==
[2024-08-22 12:13] LABS: Hematocrit 43.7 % (42.0-52.0); Hemoglobin 14.8 g/dl (14.0-18.0); Mean Corpuscular HGB Conc 33.9 g/dl (31.0-36.0); Mean Corpuscular Hemoglobin 30.3 pg (27.0-33.0); Mean Corpuscular Volume 89.4 fL (80.0-98.0); Mean Platelet Volume 10.4 fL (9.4-12.4); Platelet Count 260 X10*3/uL (160-400); Red Blood Count 4.89 X10*6/uL (4.60-5.80); Red Cell Distribution Width 12.9 % (11.0-16.0); White Blood Count 7.4 X10*3/uL (4.8-10.8)
[2024-08-22 12:37] LABS: Alanine Aminotransferase 62 U/L (0-40); Albumin Level 4.3 g/dL (3.5-5.0); Alkaline Phosphatase 81 U/L (39-117); Anion Gap 8 (12-20); Aspartate Amino Transferase 27 U/L (5-37); Bilirubin Total 0.4 mg/dL (0.0-1.0); Blood Urea Nitrogen 13 mg/dL (9-16); Calcium 9.6 mg/dL (8.4-10.2); Carbon Dioxide 29 mmol/L (22-29); Chloride 107 mmol/L (96-108); Cholesterol 238 mg/dL (<200); Estimated Glomerular Filt Rate > 60; Glucose Fasting 93 mg/dL (60-99); HDL Cholesterol 34 mg/dL (>40); LDL Cholesterol Calculated 186 mg/dL (<100); Potassium 4.4 mmol/L (3.3-5.1); Sodium 140 mmol/L (135-145); Triglycerides 93 mg/dL (<150)
== END 2024-08-22 10:31 | disposition home or self-care (01) ==
LOC: HO.LAB 10:30
PROVIDERS: PCP Physician Assistant; Visit Provider Physician Assistant
DX: Z00.00 Encounter for general adult medical examination without abnormal findings (principal); R79.89 Other specified abnormal findings of blood chemistry; E78.2 Mixed hyperlipidemia
CPT/HCPCS: 36415; 80053; 80061; 85027; 96127

== ENCOUNTER 2024-11-21 08:19 | Emergency (ER) | payer OTHER, SELFPAY ==
--- NOTE | ~2024-11-21 | XR_ITS ---
CLINICAL HISTORY: lt ankle injury Exam: AP, lateral, and mortise views of the left ankle. Comparison: None provided. Findings: Bony alignment is anatomic. No acute fracture. Ankle mortise is intact. [id number] amount of lateral soft tissue swelling. Impression: Lateral soft tissue swelling without acute fracture. This document has been electronically signed by: Michael Medina MD on 11/21/2024 09:10:27
[2024-11-21 08:22] VITALS: BP 130/85; PULSE 81; RESP 16; TEMP 36.7; O2SAT 96; BMI 27.9
--- NOTE | 2024-11-21 08:48 | ED_ITS ---
HPI - General Adult General Chief complaint: Extremity Injury, Lower Stated complaint: L foot injury Time Seen by Provider: 11/21/24 08:41 Source: patient Mode of arrival: ambulatory Limitations: no limitations History of Present Illness ED Provider: Lolis Wilson PA-C HPI narrative: Patient is a 34 year old male presenting to the ER on 11/21 with chief complaint of L ankle pain. He reports he was playing basketball yesterday 11/20 when his L foot landed on another player, causing his ankle to invert. He immediately heard a pop and has experienced swelling and severe unrelenting pain since. He has been unable to bear weight on his foot since the injury. He endorses having twisted his ankle before, but has never been this severe. He denies loss of sensation to his lower extremity. He has not tried any OTC medications to alleviate pain. Ice has helped minimally. He states avoiding weight bearing on his L ankle helps with his pain. Onset (ago): day(s) (1 day ago) Location: left and lower extremity (left lateral ankle) Radiation: non-radiation Pain Consistency: constant Relieving factors: cold therapy Exacerbating factors: rest Associated symptoms: denies other symptoms Treatments prior to arrival: none (Ice pack received upon arrival) Related Data Home Medications ?Medication ?Instructions ?Recorded ?Confirmed No Known Home Meds 02/10/22 08/22/24 Allergies Allergy/AdvReac Type Severity Reaction Status Date / Time No Known Allergies Allergy Verified 11/21/24 08:24 Review of Systems 2 Constitutional: Constitutional: Reports no additional constitutional complaints, Denies chills, Denies fever(s) and Denies night sweats Eyes: Eyes: Reports no additional eye complaints, Denies blurry vision, Denies change in vision, Denies diplopia, Denies eye discharge, Denies loss of vision and Denies eye pain ENT: Denies dizziness Cardiovascular: Cardiovascular: Reports no additional cardiovascular complaints, Denies chest pain, Denies lightheadedness, Denies Loss of Consciousness and Denies dyspnea Respiratory: Respiratory: Reports no additional respiratory complaints and Denies dyspnea Gastrointestinal: Gastrointestinal: Reports no additional gastrointestinal complaints, Denies abdominal pain, Denies melena, Denies hematochezia, Denies change in bowel habits and Denies change in stool character Genitourinary: Genitourinary: Reports no additional male genitourinary complaints, Denies hematuria, Denies oliguria, Denies difficulty urinating, Denies dysuria, Denies urinary frequency, Denies urinary hesitancy, Denies urinary incontinence and Denies urinary urgency Musculoskeletal: Musculoskeletal: Reports no additional musculoskeletal complaints, Denies numbness and Denies tingling Comments: left ankle pain Neurologic: Denies dizziness, Denies loss of vision, Denies numbness and Denies tingling Psychiatric: Psychiatric: Reports no additional psychiatric complaints Endocrine: Endocrine: Reports no additional endocrine complaints Hematologic/Lymphatic: Hematologic/Lymphatic: Reports no additional hematologic/lymphatic complaints Allergic/Immunologic: Allergic/Immunologic: Reports no additional allergic/immunologic complaints FOR[facility] Past Medical History Attestation statement: The following information was validated with the patient. Source: old records reviewed and nursing notes reviewed Social History Social History Housing: Apartment Alcohol intake: current Alcohol intake frequency: holidays/special occasions only Smoked in Last 30 Days: No e-Cigarette/Vaping Use: Never Used Use of substances other than those prescribed or required for medical reasons: No Substance Use Type: Marijuana Advance Directives: No Advance Directives Information Provided: Yes Do you have a plan to hurt others: No Plan service: No Current occupational status: employed Current occupation: [employer] Cognitive needs: No Hearing needs: No Vision needs: No Physical Exam ED Vital Signs: Vital Signs - 24 hr 11/21/24 08:22 Temperature 98.1 F Pulse Rate 81 Respiratory Rate 16 Blood Pressure 130/85 Pulse Oximetry 96 Oxygen Delivery Method Room Air BMI result Body Mass Index 27.9 Const General: cooperative, no acute distress, alert and awake Nutritional Appearance: well nourished Orientation/consciousness: patient oriented x3 Limitations: physical limitations (unable to weight bear on L ankle due to pain) HENMT Head: Yes normal to inspection and Yes atraumatic Ears: hearing grossly normal bilaterally and external ears normal General nose exam: Normal external nose present, no nasal discharge noted and no epistaxis Face and sinus: Yes normal facial exam, No abrasion and No laceration Mouth: Normal oral and palatal mucosa present, no drooling and no muffled voice Eyes General: appearance normal, both eyes and all related structures Periorbital: periorbital findings normal Eyelids: Yes eyelids normal Conjunctivae: conjunctivae normal Pupils: Equal, round and reactive pupils present EOM: EOMs intact bilaterally Neck Neck: Yes normal visual inspection, Yes full ROM and Yes no lymphadenopathy Resp Effort & Inspection: normal respiratory effort and able to speak in complete sentences Neuro General: patient oriented x3, moves all extremities and CN's II-XI intact bilaterally Cranial nerves: Yes Equal, round and reactive pupils present Cognition (Neuro): normal cognition Extrem General: Yes capillary refill normal, Yes no clubbing, cyanosis or edema and Yes no calf tenderness Left lower extremity: ankle Details: abnormal to inspection (Swelling over L lateral malleolus. No ecchymosis, open wounds, or erythema present.) and abnormal ROM (Painful to palpation over L lateral malleolus. Negative pain with palpation over medial malleolus, calf, dorsal or plantar aspects of foot. L dorsalis pedis pulse intact and 2+. Pain with active and passive ROM. ) Ankle/foot/toe images: 2 1. Psych Appearance: grossly normal Mental Status: mental status grossly normal Affect: normal affect Attitude: cooperative Thought process: Normal thought process present Thought content: Normal thought content present Insight: Good insight present (Psych) Procedures Orthopedic Splinting/Casting Injury #1: Side: left Lower Extremity Injury Location: ankle Lower Extremity Immobilizer: boot orthosis Other Orthopedic Equipment: crutches Medical Decision Making Medical Decision Making MDM Narrative: Patient is a 34 year old assigned male at with a history of HLD presenting to the emergency department today with left ankle pain. Patient's physical exam was as noted in the physical exam portion of this note. Patient's left ankle x- ray showed no acute process. I explained my physical exam findings as well as all test results to the patient. I answered all questions asked by the patient. Given the patient's clinical presentation and mechanism of injury, patient's left ankle was placed in a tall walking boot with crutches and crutch instructions. I recommended the patient follow up with the orthopedic team given his exquisite tenderness and inability to bear weight. I stressed the importance of the patient taking his medication as directed (either prescribed or as the over the counter packaging recommends). I stressed the importance of the patient following up with his primary care provider and the orthopedic team. I stressed the importance of the patient returning to the emergency department immediately if his symptoms were to worsen or if he were to develop any dizziness, shortness of breath, difficulty breathing, chest pain, blurry vision, loss of vision, nausea, vomiting, abdominal pain, fever, chills, back pain, or any other complaints. Patient verbalized agreement and understanding with this treatment plan and discharge. Differential Diagnosis Differential Diagnoses: The differential diagnosis associated with the presentation includes Left ankle fracture Left ankle sprain Left ankle strain Admission/Observation Consideration of admission/observation: Escalation of care including admission/observation considered Patient would have been admitted to the hospital had his work up had any findings where hospital admission was appropriate and his clinical presentation warranted hospital admission. Independent Interpretation I performed an independent interpretation of an: Plain X-Ray Interpretation: My interpretation is in agreement with the radiologist's impression of this imaging study. L CLINICAL HISTORY: lt ankle injury Exam: AP, lateral, and mortise views of the left ankle. Comparison: None provided. Findings: Bony alignment is anatomic. No acute fracture. Ankle mortise is intact. [id number] amount of lateral soft tissue swelling. Impression: Lateral soft tissue swelling without acute fracture. This document has been electronically signed by: Michael Medina MD on 11/21/2024 09:10:27 Dictated By: Michael Medina MD Signed By: Electronically signed by Michael Medina MD 11/21/24 0911 Radiology Impression Discussion of test interpretation with radiology: I have reviewed the radiologist's reading. Discharge Plan Discharge Clinical Impression: Ankle sprain Qualifiers: Encounter type: initial encounter Involved ligament of ankle: unspecified ligament Laterality: left Qualified Code(s): S93.402A - Sprain of unspecified ligament of left ankle, initial encounter Patient Disposition: Home, Self-Care Instructions: Ankle Sprain (DC), Crutch Instructions (ED), Walking Boot (ED) Additional Instructions: Follow up with your primary care provider and given your examination - the orthopedic team. You may remove the walking boot when stationary. Return to the emergency department immediately if your symptoms worsen or if you develop any numbness, tingling, dizziness, shortness of breath, difficulty breathing, chest pain, blurry vision, loss of vision, nausea, vomiting, abdominal pain, fever, chills, back pain, or any other complaints. Please see the information below about our Patient Portal. If you are not yet enrolled in the [facility] Patient Portal, you will receive an enrollment email invitation following your visit to any [facility] ED setting. You may also self-enroll in the Patient Portal by visiting our website: [email or web address] The following information is required to access the Patient Portal: - Your [facility] Medical Record Number - Your personal home email address (must match what is in your electronic medical record, Registration staff can assist with this) - Name - Date of Capabilities of the Patient Portal: - Message some providers - View upcoming appointments - Access your health summary, medical history, and visit history - View current conditions and allergies - View procedure and lab results - View your medications, including guidelines, side effects, and precautions - Complete pre-appointment questionnaires requested by your provider - Ready summary reports of your office visits and procedures To access the Patient Portal Mobile Saul, follow these directions: - Search Moblyng in the Saul Store or Google [employer] Security Store - Download the Saul - Search for [facility] - Enter your login/password Prescriptions: No Action No Known Home Meds Referrals: [facility] Orthopedic Surgeons [Provider Group] Referral Note: Call to establish and follow up with an orthopedic provider. Inder Flores PA-C [Primary Care Provider, Internal Medicine] Stand Alone Forms: Work/School Release Print Language: Estonian
[2024-11-21 10:17] VITALS: BP 130/85; PULSE 81; RESP 16; TEMP 36.7; O2SAT 96
== END 2024-11-21 10:15 | disposition home or self-care (01) ==
PROVIDERS: Emergency Provider Emergency Medicine Emergency Medical Services; PCP Physician Assistant
DX: S93.402A Sprain of unspecified ligament of left ankle, initial encounter (principal); X50.1XXA Overexertion from prolonged static or awkward postures, initial encounter; M25.572 Pain in left ankle and joints of left foot; Y93.67 Activity, basketball; Y92.310 Basketball court as the place of occurrence of the external cause; Y99.8 Other external cause status
CPT/HCPCS: 73610; 96372; 99284; J1885

== ENCOUNTER → 2024-11-21 08:45 | Outpatient (BNV) | payer OTHER, SELFPAY | PROVIDERS: Emergency Provider Emergency Medicine Emergency Medical Services; PCP Physician Assistant; Visit Provider Radiology Diagnostic Radiology | DX: R22.42 Localized swelling, mass and lump, left lower limb (principal) | CPT/HCPCS: 73610 ==